=== PATIENT | male | born 1955 | race Caucasian/White ===

== ENCOUNTER 2017-11-26 06:54 | Day surgery (SDC) | payer BC ==
[2017-11-21 08:58] LABS: BASOPHILS % (AUTO) 0.3 % (0-1); EOSINOPHILS # (AUTO) 0.1 X10'3 (0-0.9); EOSINOPHILS % (AUTO) 2.6 % (0-6); HEMATOCRIT 44.5 % (42.0-52.0); HEMOGLOBIN 15.8 g/dl (14.0-17.9); LYMPHOCYTES # (AUTO) 1.6 X10'3 (1.1-4.8); LYMPHOCYTES % (AUTO) 29.3 % (21-51); MEAN CORPUSCULAR HEMOGLOBIN 32.9 PG (27.0-31.0); MEAN CORPUSCULAR HGB CONC 35.5 % (33.0-36.5); MEAN CORPUSCULAR VOLUME 92.7 FL (78-98); MEAN PLATELET VOLUME 8.4 FL (7.4-10.4); MONOCYTES # (AUTO) 0.6 X10'3 (0-0.9); MONOCYTES % (AUTO) 11.6 % (2-12); NEUTROPHILS # (AUTO) 3.1 X10'3 (1.8-7.7); NEUTROPHILS % (AUTO) 56.2 % (42-75); PLATELET COUNT 249 X10'3 (140-440); RED CELL DISTRIBUTION WIDTH 12.6 % (11.5-14.5); WHITE BLOOD COUNT 5.5 X10'3 (4.5-11.0)
[2017-11-21 09:08] LABS: PARTIAL THROMBOPLASTIN TIME 26 SECONDS (22-32); PROTHROMBIN TIME 10.1 SECONDS (9.0-12.0)
[2017-11-21 09:12] LABS: ALANINE AMINOTRANSFERASE 67 U/L (12-78); ALBUMIN 3.7 G/DL (3.4-5.0); ALBUMIN/GLOBULIN RATIO 1.2 (1.1-1.5); ALKALINE PHOSPHATASE 101 IU/L (46-116); ANION GAP 7 (8-16); ASPARTATE AMINO TRANSFERASE 30 U/L (10-37); BILIRUBIN,TOTAL 0.7 MG/DL (0.1-1.0); BLOOD UREA NITROGEN 19 MG/DL (7-18); BUN/CREATININE RATIO 17.1 (5.4-32.0); CALCIUM 9.2 MG/DL (8.5-10.1); CHLORIDE 103 MMOL/L (99-107); CREATININE 1.11 MG/DL (0.60-1.10); GLUCOSE 180 MG/DL (70-104); POTASSIUM 4.2 MMOL/L (3.5-5.1); SODIUM 137 MMOL/L (135-145); TOTAL CARBON DIOXIDE 27.1 MMOL/L (24-32); TOTAL PROTEIN 6.9 G/DL (6.4-8.2); eGFR 67 ML/MIN
[~2017-11-26] VITALS: Ht 177.8 cm; Wt 125.8 kg
[2017-11-26] VITALS (11 sets, daily range): BP systolic 115–142; BP diastolic 55–81
[2017-11-26] MEDS ORDERED: diphenhydrAMINE 25mg capsule PO PRN (07:15)
[2017-11-26] MEDS ORDERED: normal saline 1000ml 1,000 ML IV SCH (07:15)
[2017-11-26] MEDS ORDERED: nitroGLYCERIN 0.4mg SUBLingual tab SL PRN ×2 (07:15→11:10)
[2017-11-26] MEDS ORDERED: LORazepam 0.5 MG tablet PO PRN (07:15)
[2017-11-26] MEDS ORDERED: ATEN-169 PO (07:22)
[2017-11-26] MEDS ORDERED: MELO-100 PO (07:22)
[2017-11-26] MEDS ORDERED: LORA-512 PO (07:22)
[2017-11-26] MEDS ORDERED: OMEP20CA10 PO (07:22)
[2017-11-26] MEDS ORDERED: midazolam 2 mg/2 ml injection ONE (09:14)
[2017-11-26] MEDS ORDERED: fentaNYL/PF 50MCG/1 ML 2ML syringe ONE (09:14)
[2017-11-26] MEDS ORDERED: lidocaine 1%/epinephrine 1:100,000 injection 50ml vial ONE (09:16)
[2017-11-26] MEDS ORDERED: iohexol 350MG/ML 100ml bottle IV ONE (09:17)
[2017-11-26] MEDS ORDERED: iohexol 350 MG/ML 50ML vial IV ONE (09:17)
[2017-11-26] MEDS ORDERED: proCHLORperazine 10 MG/2 ml inj IV PRN (11:10)
[2017-11-26] MEDS ORDERED: OXAZEpam 15mg capsule PO PRN (11:10)
[2017-11-26] MEDS ORDERED: ondansetron/PF 4mg/2ml inj IV PRN (11:10)
== END 2017-11-26 16:54 | disposition home or self-care (01) ==
LOC: SSTAY O 06:54
PROVIDERS: ATTEND Internal Medicine Cardiovascular Disease
DX: I25.10 Atherosclerotic heart disease of native coronary artery without angina pectoris (principal); I44.7 Left bundle-branch block, unspecified; E66.01 Morbid (severe) obesity due to excess calories; M19.90 Unspecified osteoarthritis, unspecified site; I10 Essential (primary) hypertension; Z68.39 Body mass index [BMI] 39.0-39.9, adult; Z79.899 Other long term (current) drug therapy; Z98.890 Other specified postprocedural states
CPT/HCPCS: 36415; 71046; 80053; 85025; 85610; 85730; 93458; 99152; 99153; A6257; C1760; C1769; J1644; J2250; J3010; J3490; J7030; Q0163; Q9967; A4620